=== PATIENT | female | born 1975 | race Hispanic/Latino ===

== ENCOUNTER 2018-05-29 01:11 | Emergency (ER) | payer BC ==
[~2018-05-29] VITALS: Ht 160 cm; Wt 88.0 kg
[~2018-05-29 01:11] MED LIST: CLINDAMYCIN HC300 MG PO; LORTAB 10-5001 EACH PO; SEPTRA DS TABL1 EACH PO; TRIAMTERENE-HCTZ PO
[2018-05-29] MEDS ORDERED: LIDOCAINE VISC 2% SOLN 15 ML UDC ONE (01:33)
[2018-05-29] MEDS ORDERED: BELLADONNA ALK/PHENOBARBITAL 5 ML UDC ONE (01:33)
[2018-05-29] MEDS ORDERED: MAGNESIUM/ALUMINUM/SIMETHICONE 30 ML UDC ONE (01:34)
[2018-05-29] MEDS ORDERED: LIDOCAINE VISC 2% SOLN 15 ML UDC PO ONE ×2 (01:45→02:00)
[2018-05-29] MEDS ORDERED: BELLADONNA ALK/PHENOBARBITAL 5 ML UDC PO ONE (01:45)
[2018-05-29] MEDS ORDERED: MAGNESIUM/ALUMINUM/SIMETHICONE 30 ML UDC PO ONE (01:45)
== END 2018-05-29 01:45 | disposition home or self-care (01) ==
LOC: ER 01:11
DX: K21.0 Gastro-esophageal reflux disease with esophagitis (principal)
CPT/HCPCS: 99282

== ENCOUNTER 2020-08-06 23:46 | Emergency (ER) | payer BC ==
[~2020-08-06] VITALS: Ht 160 cm; Wt 81.6 kg
== END 2020-08-06 23:59 | disposition home or self-care (01) ==
LOC: ER 23:55
DX: E11.65 Type 2 diabetes mellitus with hyperglycemia (principal); I10 Essential (primary) hypertension
CPT/HCPCS: 99282